=== PATIENT | female | born 1950 | race Hispanic/Latino ===

== ENCOUNTER 2017-09-02 16:35 | Observation (INO) | payer MEDICARE, OTHER ==
[~2017-09-02] VITALS: Ht 152.4 cm; Wt 70.2 kg
[~2017-09-02 16:35] MED LIST: AUGMENTIN500TAB PO; B6 NATURAL100 MG PO; DICLOFENAC50 MG PO; GABAPENTIN300 MG PO; GLIMEPIRIDE4 MG PO; GLUCOPHAGE1000 MG PO; GLUCOVANCE5 MG/500 M PO; IBUPROFEN600 MG OR; JANUVIA100 MG PO; LEVAQUIN500 MG PO; LEVOTHROID50 MCG PO; LIPITOR40 MG OR; LIPITOR40 MG PO; LISINOPRIL5 MG PO; LYRICA75 MG PO; MAGNESIUM400 M1 PO; PRAVASTATIN40 MG PO; PRILOSEC20 MG/CAP PO; SERTRALINE50 MG PO; TESSALON PER100 MG PO; TRAMADOL HCL50 MG PO; TRUETEST STRIPS EX; TRUETEST STRIPS XX; VICODIN ES1 TAB OR; [UNRECOGNIZED DRUG - OTHER] PO
[2017-09-02 17:26] LABS: HEMATOCRIT 37.9 % (37.0-47.0); HEMOGLOBIN 12.9 g/dl (12.0-16.0); IMMATURE GRANULOCYTES 0.3 % (0.0-1.0); MEAN CELL VOLUME 97.9 fL CALC (80.0-100.0); MEAN CORPUSCULAR HGB 33.3 pG CALC (26.0-32.0); NEUT# 4.34 thou/uL (2.00-7.15); RED BLOOD COUNT 3.87 mill/uL (4.20-5.60); RED CELL DISTRI WIDTH 12.5 % (11.5-15.5)
[2017-09-02 18:14] LABS: ALBUMIN 4.2 g/dL (3.2-5.0); BILIRUBIN, TOTAL 0.2 mg/dL (0.0-1.4); BUN 16 mg/dL (8-23); BUN/CREATININE RATIO 26 (12-20 (CALC)); CARBON DIOXIDE 24 mmol/l (22-30); CHLORIDE 106 mmol/l (95-108); CREATININE 0.6 mg/dL (0.5-1.0); GFR > 60 ML/MIN (>=60 (CALC)); GFR FOR AFR.AMER. > 60 ML/MIN (>=60 (CALC)); SGOT/AST 35 u/l (9-36); SGPT/ALT 45 u/l (11-66); TOTAL PROTEIN 7.5 g/dL (6.3-8.2)
[2017-09-02 18:19] LABS: ALKALINE PHOSPHATASE 82 u/l (38-126); ANION GAP 17 (6-22 (CALC)); SODIUM 143 mmol/l (137-146)
[2017-09-02 18:22] LABS: MYOGLOBIN 30 ng/mL (0 - 62)
[2017-09-02] MEDS ORDERED: METFORMIN HCL1000 MG PO (19:14)
[2017-09-02] MEDS ORDERED: ALBUTEROL SUL0.083 % IN (19:16)
[2017-09-02] MEDS ORDERED: FOLIC ACID1 MG PO (19:18)
[2017-09-02] MEDS ORDERED: PRILOSEC20 MG/CAP PO (19:20)
[2017-09-02] MEDS ORDERED: CARAFATE PO (19:21)
[2017-09-02] MEDS ORDERED: SYSTANE BALANCE 0.6% (19:22)
[2017-09-02] MEDS ORDERED: TRAMADOL HCL50 MG PO (19:23)
[2017-09-02] MEDS ORDERED: VITAMIN B-625 MG PO (19:24)
[2017-09-02 20:28] LABS: URINE BILIRUBIN - DIPSTICK NEGATIVE (NEGATIVE); URINE BLOOD DIPSTICK NEGATIVE (NEGATIVE); URINE COLOR YELLOW; URINE GLUCOSE - DIPSTICK NEGATIVE (NEGATIVE); URINE KETONE NEGATIVE (NEGATIVE); URINE LEUK ESTERASE NEGATIVE (NEGATIVE); URINE NITRITE - DIPSTICK NEGATIVE (Negative); URINE PH 5.5 (4.5-8.0); URINE PROTEIN - DIPSTICK NEGATIVE (NEG-TRACE); URINE SPECIFIC GRAVITY 1.015; URINE UROBILINOGEN - DIPSTICK 0.2 E.U./dL (0.2)
[2017-09-02 20:30] LABS: URINE CLARITY CLEAR
[2017-09-02 20:35] VITALS: BP 120/59
[2017-09-03 05:21] VITALS: BP 104/60
[2017-09-03 06:38] LABS: CHOLESTEROL HDL RATIO 3.9 (<4.4 (CALC))
[2017-09-03 08:00] VITALS: BP 117/53
[2017-09-03] MEDS ORDERED: FISH OIL1000 M2 PO (09:58)
[2017-09-03] MEDS ORDERED: AZULFIDINE500 M1 PO (10:11)
[2017-09-03 11:36] VITALS: BP 115/67
[2017-09-03] MEDS ORDERED: ASPIRIN ADULT L81 M2 PO (13:42)
== END 2017-09-03 14:25 | disposition home or self-care (01) ==
LOC: ED 16:35 → ED-I 18:19 → ED 18:31 → MS2 18:32
PROVIDERS: Emergency Medicine; Internal Medicine; ADMIT Internal Medicine; ATTEND Internal Medicine
DX: R07.89 Other chest pain (principal); E11.9 Type 2 diabetes mellitus without complications; I10 Essential (primary) hypertension; E03.9 Hypothyroidism, unspecified; E78.5 Hyperlipidemia, unspecified; G43.909 Migraine, unspecified, not intractable, without status migrainosus; R55 Syncope and collapse; Z87.891 Personal history of nicotine dependence; Z87.442 Personal history of urinary calculi; Z79.84 Long term (current) use of oral hypoglycemic drugs
CPT/HCPCS: Q9967

== ENCOUNTER 2018-03-25 18:07 | Emergency (ER) | payer MEDICARE, OTHER ==
[~2018-03-25] VITALS: Ht 152.4 cm; Wt 72.7 kg
[~2018-03-25 18:07] MED LIST changes: +ALBUTEROL SUL0.083 % IN; +ASPIRIN ADULT L81 M2 PO; +AZULFIDINE500 M1 PO; +CARAFATE PO; +FISH OIL1000 M2 PO; +FOLIC ACID1 MG PO; +METFORMIN HCL1000 MG PO; +SYSTANE BALANCE 0.6%; +VITAMIN B-625 MG PO
[2018-03-25 18:57] LABS: URINE BILIRUBIN - DIPSTICK NEGATIVE (NEGATIVE); URINE BLOOD DIPSTICK NEGATIVE (NEGATIVE); URINE COLOR YELLOW; URINE GLUCOSE - DIPSTICK NEGATIVE (NEGATIVE); URINE KETONE TRACE mg/dL (NEGATIVE); URINE NITRITE - DIPSTICK NEGATIVE (Negative); URINE PROTEIN - DIPSTICK NEGATIVE (NEG-TRACE); URINE SPECIFIC GRAVITY >=1.030; URINE UROBILINOGEN - DIPSTICK 0.2 E.U./dL (0.2)
[2018-03-25 19:02] LABS: URINE CLARITY CLEAR; URINE LEUK ESTERASE SMALL (NEGATIVE)
[2018-03-25 19:03] LABS: HEMATOCRIT 37.7 % (37.0-47.0); HEMOGLOBIN 12.7 g/dl (12.0-16.0); IMMATURE GRANULOCYTES 0.4 % (0.0-5.0); MEAN CELL VOLUME 97.4 fL CALC (80.0-100.0); MEAN CORPUSCULAR HGB 32.8 pG CALC (26.0-32.0); MEAN CORPUSCULAR HGB CONC 33.7 g/L CALC (32.0-36.0); NEUT# 5.54 thou/uL (2.00-7.15); RED BLOOD COUNT 3.87 mill/uL (4.20-5.60); RED CELL DISTRI WIDTH 12.8 % (11.5-15.5)
[2018-03-25 19:03] LABS: URINE SQUAMOUS EPITHELIAL CELL FEW EPI/hpf (0-FEW)
[2018-03-25 19:19] LABS: ALBUMIN 4.4 g/dL (3.2-5.0); ALKALINE PHOSPHATASE 60 u/l (38-126); ANION GAP 16 (6-22 (CALC)); BILIRUBIN, TOTAL 0.4 mg/dL (0.0-1.4); BUN 17 mg/dL (8-23); BUN/CREATININE RATIO 25 (12-20 (CALC)); CARBON DIOXIDE 28 mmol/l (22-30); CHLORIDE 104 mmol/l (95-108); CREATININE 0.7 mg/dL (0.5-1.0); GFR > 60 ML/MIN (>=60 (CALC)); GFR FOR AFR.AMER. > 60 ML/MIN (>=60 (CALC)); POTASSIUM 3.9 mmol/l (3.5-5.1); SGPT/ALT 74 u/l (11-66); SODIUM 144 mmol/l (137-146); TOTAL PROTEIN 8.1 g/dL (6.3-8.2)
[2018-03-25 19:26] LABS: LIPASE 4459 u/l (23-300); SGOT/AST 70 u/l (9-36)
[2018-03-25 23:15] VITALS: BP 107/59
== END 2018-03-25 23:15 ==
LOC: ED 18:07
PROVIDERS: Emergency Medicine
DX: K85.90 Acute pancreatitis without necrosis or infection, unspecified (principal); K29.80 Duodenitis without bleeding; N39.0 Urinary tract infection, site not specified; E11.9 Type 2 diabetes mellitus without complications; E03.9 Hypothyroidism, unspecified; E78.5 Hyperlipidemia, unspecified; Z87.442 Personal history of urinary calculi
CPT/HCPCS: Q9967; S0164

== ENCOUNTER 2018-05-20 15:22 | Emergency (ER) | payer MEDICARE, MEDICAID ==
[~2018-05-20] VITALS: Ht 142.2 cm; Wt 68.2 kg
[2018-05-20 16:29] LABS: HEMATOCRIT 39.3 % (37.0-47.0); HEMOGLOBIN 13.1 g/dl (12.0-16.0); IMMATURE GRANULOCYTES 0.3 % (0.0-5.0); MEAN CELL VOLUME 98.7 fL CALC (80.0-100.0); MEAN CORPUSCULAR HGB 32.9 pG CALC (26.0-32.0); MEAN CORPUSCULAR HGB CONC 33.3 g/L CALC (32.0-36.0); NEUT# 6.29 thou/uL (2.00-7.15); RED BLOOD COUNT 3.98 mill/uL (4.20-5.60); RED CELL DISTRI WIDTH 13.2 % (11.5-15.5)
[2018-05-20 16:47] LABS: ALBUMIN 4.7 g/dL (3.2-5.0); ALKALINE PHOSPHATASE 70 u/l (38-126); BILIRUBIN, TOTAL 0.5 mg/dL (0.0-1.4); BUN 24 mg/dL (8-23); BUN/CREATININE RATIO 36 (12-20 (CALC)); CHLORIDE 109 mmol/l (95-108); CREATININE 0.7 mg/dL (0.5-1.0); GFR > 60 ML/MIN (>=60 (CALC)); GFR FOR AFR.AMER. > 60 ML/MIN (>=60 (CALC)); SGOT/AST 59 u/l (9-36); SODIUM 143 mmol/l (137-146); TOTAL PROTEIN 8.2 g/dL (6.3-8.2)
[2018-05-20 16:48] LABS: ANION GAP 20 (6-22 (CALC)); CARBON DIOXIDE 19 mmol/l (22-30); POTASSIUM 5.3 mmol/l (3.5-5.1)
[2018-05-20 17:38] VITALS: BP 113/57
[2018-05-20 17:43] LABS: URINE BILIRUBIN - DIPSTICK NEGATIVE (NEGATIVE); URINE BLOOD DIPSTICK NEGATIVE (NEGATIVE); URINE COLOR YELLOW; URINE GLUCOSE - DIPSTICK NEGATIVE (NEGATIVE); URINE KETONE NEGATIVE (NEGATIVE); URINE NITRITE - DIPSTICK NEGATIVE (Negative); URINE PH 5.5 (4.5-8.0); URINE PROTEIN - DIPSTICK NEGATIVE (NEG-TRACE); URINE SPECIFIC GRAVITY >=1.030; URINE UROBILINOGEN - DIPSTICK 0.2 E.U./dL (0.2)
[2018-05-20 17:44] LABS: URINE CLARITY CLEAR; URINE LEUK ESTERASE SMALL (NEGATIVE)
[2018-05-20 17:56] LABS: URINE RBC 0-2 RBC/hpf (0-5); URINE SQUAMOUS EPITHELIAL CELL FEW EPI/hpf (0-FEW)
== END 2018-05-20 17:45 | disposition home or self-care (01) ==
LOC: ED 15:22
PROVIDERS: Emergency Medicine
DX: E11.649 Type 2 diabetes mellitus with hypoglycemia without coma (principal); Z79.84 Long term (current) use of oral hypoglycemic drugs; R42 Dizziness and giddiness; R61 Generalized hyperhidrosis

== ENCOUNTER 2018-08-28 11:23 | Outpatient (REF) | payer MEDICARE ==
[2018-08-28 13:26] VITALS: BP 112/67
== END 2018-08-28 15:05 | disposition home or self-care (01) ==
LOC: INF 11:23
PROVIDERS: ATTEND Internal Medicine Rheumatology
DX: M06.09 Rheumatoid arthritis without rheumatoid factor, multiple sites (principal)

== ENCOUNTER 2018-12-16 22:40 | Emergency (ER) | payer MEDICARE ==
[~2018-12-16] VITALS: Ht 142.2 cm; Wt 72.0 kg
[2018-12-16 23:23] LABS: HEMOGLOBIN 12.4 g/dl (12.0-16.0); IMMATURE GRANULOCYTES 0.7 % (0.0-5.0); MEAN CELL VOLUME 94.8 fL CALC (80.0-100.0); MEAN CORPUSCULAR HGB 30.9 pG CALC (26.0-32.0); MEAN CORPUSCULAR HGB CONC 32.6 g/L CALC (32.0-36.0); NEUT# 3.81 thou/uL (2.00-7.15); RED BLOOD COUNT 4.01 mill/uL (4.20-5.60); RED CELL DISTRI WIDTH 13.5 % (11.5-15.5)
[2018-12-16 23:24] LABS: URINE BILIRUBIN - DIPSTICK NEGATIVE (NEGATIVE); URINE BLOOD DIPSTICK NEGATIVE (NEGATIVE); URINE COLOR YELLOW; URINE GLUCOSE - DIPSTICK >=1000 mg/dL (NEGATIVE); URINE KETONE NEGATIVE (NEGATIVE); URINE LEUK ESTERASE NEGATIVE (NEGATIVE); URINE NITRITE - DIPSTICK NEGATIVE (Negative); URINE PROTEIN - DIPSTICK NEGATIVE (NEG-TRACE); URINE SPECIFIC GRAVITY <=1.005; URINE UROBILINOGEN - DIPSTICK 0.2 E.U./dL (0.2)
[2018-12-16 23:39] LABS: ALBUMIN 4.7 g/dL (3.2-5.0); BILIRUBIN, TOTAL 0.4 mg/dL (0.0-1.4); BUN 19 mg/dL (8-23); BUN/CREATININE RATIO 34 (12-20 (CALC)); CHLORIDE 101 mmol/l (95-108); CREATININE 0.6 mg/dL (0.5-1.0); GFR > 60 ML/MIN (>=60 (CALC)); GFR FOR AFR.AMER. > 60 ML/MIN (>=60 (CALC)); POTASSIUM 4.8 mmol/l (3.5-5.1); SGOT/AST 36 u/l (9-36); SODIUM 140 mmol/l (137-146); TOTAL PROTEIN 8.2 g/dL (6.3-8.2)
[2018-12-16 23:52] LABS: MYOGLOBIN 30 ng/mL (0 - 62)
[2018-12-17 00:05] LABS: ALKALINE PHOSPHATASE 99 u/l (38-126); ANION GAP 21 (6-22 (CALC)); CARBON DIOXIDE 23 mmol/l (22-30)
[2018-12-17 01:52] VITALS: BP 159/71
== END 2018-12-17 02:04 | disposition home or self-care (01) ==
LOC: ED 22:40
PROVIDERS: Emergency Medicine
DX: E11.65 Type 2 diabetes mellitus with hyperglycemia (principal); E03.9 Hypothyroidism, unspecified; I10 Essential (primary) hypertension; I25.10 Atherosclerotic heart disease of native coronary artery without angina pectoris

== ENCOUNTER 2019-04-18 10:28 | Observation (INO) | payer MEDICARE ==
[~2019-04-18] VITALS: Ht 152.4 cm; Wt 66.4 kg
--- NOTE | 2019-04-18 10:28 | NUR ---
PT TO ROOM VIA WC WITH EYES CLOSED
--- NOTE | 2019-04-18 10:30 | NUR ---
PT PRESENTS WITH DIZZYNESS AND NAUSEA. PT STATES SYMPTOMS OCCURED AT 0300 TODAY. PT WEAK WHEN AMBULATING AND CONSTANTLY HAS EYES CLOSED TO AVOID INCREASED DIZZYNESS. LUNGS CLEAR BILATERALLY AND ABDOMEN TENDER IN EPIGASTRIC AREA.
--- NOTE | 2019-04-18 10:50 | NUR ---
ACCUCHECK COMPLETED. RESULTS: 256
--- NOTE | 2019-04-18 10:50 | NUR ---
FALL PRECAUTIONS INITIATED.
[2019-04-18 11:03] LABS: HEMATOCRIT 38.9 % (37.0-47.0); HEMOGLOBIN 12.9 g/dl (12.0-16.0); IMMATURE GRANULOCYTES 0.3 % (0.0-5.0); MEAN CORPUSCULAR HGB 31.9 pG CALC (26.0-32.0); MEAN CORPUSCULAR HGB CONC 33.2 g/L CALC (32.0-36.0); NEUT# 4.74 thou/uL (2.00-7.15); RED BLOOD COUNT 4.05 mill/uL (4.20-5.60); RED CELL DISTRI WIDTH 13.9 % (11.5-15.5)
[2019-04-18] MEDS ORDERED: RANITIDINE150 MG PO (11:12)
[2019-04-18] MEDS ORDERED: POTASSIUM CHLO10 MEQ PO (11:13)
[2019-04-18] MEDS ORDERED: GLIMEPIRIDE4 MG PO (11:13)
[2019-04-18] MEDS ORDERED: LISINOPRIL5 MG PO (11:13)
[2019-04-18] MEDS ORDERED: METHOTREXATE2.5 M2 PO (11:14)
[2019-04-18] MEDS ORDERED: ARAVA20 MG PO (11:14)
[2019-04-18] MEDS ORDERED: VITAMIN B6100 MG PO (11:15)
[2019-04-18] MEDS ORDERED: LYRICA75 MG PO (11:15)
[2019-04-18] MEDS ORDERED: MAG OXIDE400 MG PO (11:16)
[2019-04-18] MEDS ORDERED: HYDROXYCHLOR200 M1 PO (11:16)
[2019-04-18] MEDS ORDERED: LEVOTHYROXIN50 MCG PO (11:16)
[2019-04-18] MEDS ORDERED: FOLIC ACID400 MC1 PO (11:17)
[2019-04-18] MEDS ORDERED: CARAFATE1 GM PO (11:17)
[2019-04-18] MEDS ORDERED: DEXILANT60 MG PO (11:18)
[2019-04-18] MEDS ORDERED: METFORMIN1000 MG PO (11:18)
[2019-04-18] MEDS ORDERED: OMEPRAZOLE DR40 MG PO (11:19)
[2019-04-18] MEDS ORDERED: VITAMIN E400 UNIT PO (11:20)
[2019-04-18 11:30] LABS: PROTHROMBIN TIME 10.4 SECONDS (9.0-12.5)
[2019-04-18 11:33] LABS: ALBUMIN 4.4 g/dL (3.2-5.0); ALKALINE PHOSPHATASE 74 u/l (38-126); ANION GAP 16 (6-22 (CALC)); BILIRUBIN, TOTAL 0.5 mg/dL (0.0-1.4); BUN 21 mg/dL (8-23); BUN/CREATININE RATIO 33 (12-20 (CALC)); CARBON DIOXIDE 25 mmol/l (22-30); CHLORIDE 103 mmol/l (95-108); CREATININE 0.6 mg/dL (0.5-1.0); ETHYL ALCOHOL 0 mg/dl (0-30); GFR > 60 ML/MIN (>=60 (CALC)); GFR FOR AFR.AMER. > 60 ML/MIN (>=60 (CALC)); LIPASE 238 u/l (23-300); MAGNESIUM 1.1 mg/dL (1.6-2.3); POTASSIUM 4.4 mmol/l (3.5-5.1); SGOT/AST 33 u/l (9-36); SODIUM 140 mmol/l (137-146)
--- NOTE | 2019-04-18 11:35 | NUR ---
PT AOX4 RESTING ON STRETCHER. FAMILY AT BEDSIDE. PT ADVISED OF WAIT AND CALL LIGHT WITHIN REACH. WILL CONTINUE TO MONIOR.
--- NOTE | 2019-04-18 12:31 | NUR ---
PT ASLEEP ON STRETCHER WITH FAMILY AT BEDSIDE. FAMILY ADVISED OF WAIT AND DENIES ANY NEEDS AT THIS TIME. WILL CONTINUE TO MONITOR.
--- NOTE | 2019-04-18 13:20 | NUR ---
PT RETURNED FROM RADIOLOGY. PT TALKING WITH FAMILY AT BEDSIDE. WILL CONTINUE TO MONITOR.
--- NOTE | 2019-04-18 13:45 | NUR ---
ASSISTED PT TO RESTROOM FOR URINE COLLECTION, AND EDUCATION ON PROPER WIPING FOR PROPER URINE COLLECTION. PT VERBALIZING UNDERSTANDING.
[2019-04-18 14:14] LABS: URINE BILIRUBIN - DIPSTICK NEGATIVE (NEGATIVE); URINE BLOOD DIPSTICK NEGATIVE (NEGATIVE); URINE COLOR YELLOW; URINE GLUCOSE - DIPSTICK NEGATIVE (NEGATIVE); URINE KETONE NEGATIVE (NEGATIVE); URINE LEUK ESTERASE NEGATIVE (NEGATIVE); URINE NITRITE - DIPSTICK NEGATIVE (Negative); URINE PROTEIN - DIPSTICK NEGATIVE (NEG-TRACE); URINE UROBILINOGEN - DIPSTICK 0.2 E.U./dL (0.2)
[2019-04-18 14:16] LABS: COCAINE NEGATIVE (NEGATIVE); TETRAHYDROCANNABIONOL POSITIVE (NEGATIVE)
[2019-04-18 14:17] LABS: BARBITURATES NEGATIVE (NEGATIVE); METHADONE NEGATIVE (NEGATIVE); OXCYCODONE NEGATIVE (NEGATIVE); TRICYLIC ANTIDEPRESSANTS NEGATIVE (NEGATIVE)
--- NOTE | 2019-04-18 14:40 | NUR ---
PT RESTING ON STRETCHER SOCIALIZING WITH FAMILY.
--- NOTE | 2019-04-18 15:18 | NUR ---
REPORT JASMEET TO NISA IN [facility]. NISA REQUESTED A COPY FOR PT OF BLOOD TRANSFUSION CONSENT. PT WILL BE IN ROOM 278, TELE [phone]
--- NOTE | 2019-04-18 16:05 | NUR ---
REPORT JASMEET PHILIP. ROOM 283 TELE [phone].
--- NOTE | 2019-04-18 16:15 | NUR ---
TRANSFERED PT BY [facility] TO [facility]. CARE ASSUMED TO CEDRICK.
[2019-04-18 16:23] VITALS: BP 128/72
--- NOTE | 2019-04-18 16:28 | NUR ---
REPORT RECEIVED FROM MAI IN ED, PT ARRIVED ON UNIT VIA STRETCHER @ 1616, AMBULATED TO SCALE WITH SUPERVISION THEN TO BED, ALERT AND ORIENTED X 3, C/O MILD HEADACHE AT THIS TIME, SETTLED IN BED, ORIENTED TO ROOM AND CALL ALEMAN, FAMILY AT BEDSIDE.
[2019-04-18 19:25] VITALS: BP 135/70
--- NOTE | 2019-04-18 20:00 | NUR ---
PATIENT RESTING IN BED WITH FAMILY MEMBERS AT BEDSIDE. LAB HERE TO DRAW MAG LEVEL ORDERED. PATIENT IS BHUTANESE SPEAKING ONLY. GEORGE FROM LAB IS ABLE TO TRANSLATE FOR ASSESSMENT. PATIENT IS AWAKE ALERT AND ORIENTEDX3. PATIENT DOES C/O OF SOME DIZZINESS-STATES THAT THIS HAPPENS WHENEVER HER MAG IS LOW-STATES THAT THIS HAS HAPPENED TO HER IN THE PASTX3. STATES THAT HEADACHE HAS IMPROVED. TELE MONITOR IN PLACE. SALINE LOCK TO LEFT FOREARM INTACT AND APPEARS HEALTHY AT THIS ITME. STATES THAT SHE HAD BM TODAY AND DENIES ANY DIFFICULTY WITH URINATION. LUNGS ARE CLEAR. ABD IS SOFT WITH BS+. SAFETY PRECAUTIONS REINFORCED. CALL LIGHT IN REACH. WILL CONT TO MONITOR.
--- NOTE | 2019-04-18 23:52 | NUR ---
PATIENT RESTING IN BED AT THIS TIME-APPEARS SLEEPING WITH FAMILY MEMBER AT BEDSIDE. RESP ARE EVEN AND UNLABORED. TELE MONITOR IN PLACE. CALL LIGHT IN REACH. WILL CONT TO MONITOR.
[2019-04-19] VITALS (9 sets, daily range): BP systolic 112–135; BP diastolic 62–84
--- NOTE | 2019-04-19 04:14 | NUR ---
APPEARS SLEEPING AT THIS TIME WITH FAMILY MEMBER RESTING AT BEDSIDE. RESP EVEN AND UNLABORED. TELE MONITOR IN PLACE. SALINE LOCK TO LEFT FOREARM. CALL LIGHT IN REACH. WILL CONT TO MONITOR.
[2019-04-19 06:26] LABS: HEMATOCRIT 35.8 % (37.0-47.0); HEMOGLOBIN 11.9 g/dl (12.0-16.0); IMMATURE GRANULOCYTES 0.2 % (0.0-5.0); MEAN CELL VOLUME 95.7 fL CALC (80.0-100.0); MEAN CORPUSCULAR HGB 31.8 pG CALC (26.0-32.0); MEAN CORPUSCULAR HGB CONC 33.2 g/L CALC (32.0-36.0); NEUT# 3.12 thou/uL (2.00-7.15); RED BLOOD COUNT 3.74 mill/uL (4.20-5.60); RED CELL DISTRI WIDTH 13.9 % (11.5-15.5)
[2019-04-19 06:38] LABS: ANION GAP 10 (6-22 (CALC)); BUN 15 mg/dL (8-23); BUN/CREATININE RATIO 23 (12-20 (CALC)); CARBON DIOXIDE 26 mmol/l (22-30); CHLORIDE 106 mmol/l (95-108); CREATININE 0.7 mg/dL (0.5-1.0); GFR > 60 ML/MIN (>=60 (CALC)); GFR FOR AFR.AMER. > 60 ML/MIN (>=60 (CALC)); MAGNESIUM 1.5 mg/dL (1.6-2.3); SODIUM 139 mmol/l (137-146)
--- NOTE | 2019-04-19 08:05 | NUR ---
REPORT WAS RECEIVED FROM MYA. PT IS SITTING IN THE RECLINER. ASSESSMENT DONE. PT IS A&O X3. PT DENIES PAIN AT THIS TIME. RESPS EVEN AND UNLABORED. PT STATED SHE DID FEEL LITTLE DIZZY. PT STATED THAT LATER SHE WANTS TO TAKE A SHOWER. PT DENIES ANY OTHER NEEDS. SAFETY PRECAUTION REINFORCED AND CALL LIGHT IN REACH.
[2019-04-19 08:49] LABS: CHOLESTEROL HDL RATIO 5.3 (<4.4 (CALC))
--- NOTE | 2019-04-19 11:28 | NUR ---
PT IS RESTING IN BED ON HER RIGHT SIDE WITH NO S/S OF DISTRESS NOTED. PT DENIES PAIN OR NEEDS AT THIS TIME. DAUGHTER IN ROOM. CALL LIGHT IN REACH.
[2019-04-19] MEDS ORDERED: LIPITOR20 M1 PO (15:59)
[2019-04-19] MEDS ORDERED: MAGNESIUM 400 M1 TAB PO (15:59)
--- NOTE | 2019-04-19 16:49 | NUR ---
Discharge instructions given. Patient verbalizes understanding of same. Discharged in stable condition via Wheelchair to Home with family. All belongings sent with pt.
== END 2019-04-19 16:49 | disposition home or self-care (01) ==
LOC: ED 10:28 → ED-I 14:27 → ED 14:49 → MS2 14:50
PROVIDERS: Nurse Practitioner Family; ADMIT Internal Medicine; ATTEND Internal Medicine
DX: R07.9 Chest pain, unspecified (principal); E83.42 Hypomagnesemia; I10 Essential (primary) hypertension; E11.40 Type 2 diabetes mellitus with diabetic neuropathy, unspecified; K21.9 Gastro-esophageal reflux disease without esophagitis; K52.9 Noninfective gastroenteritis and colitis, unspecified; I25.10 Atherosclerotic heart disease of native coronary artery without angina pectoris; E03.9 Hypothyroidism, unspecified; E78.5 Hyperlipidemia, unspecified; G43.909 Migraine, unspecified, not intractable, without status migrainosus; Z79.84 Long term (current) use of oral hypoglycemic drugs; Z87.891 Personal history of nicotine dependence
CPT/HCPCS: J3475; Q9967

== ENCOUNTER 2019-12-13 12:52 | Emergency (ER) | payer MEDICARE ==
[~2019-12-13 12:52] MED LIST changes: +ARAVA20 MG PO; +CARAFATE1 GM PO; +DEXILANT60 MG PO; +FOLIC ACID400 MC1 PO; +HYDROXYCHLOR200 M1 PO; +LEVOTHYROXIN50 MCG PO; +LIPITOR20 M1 PO; +MAG OXIDE400 MG PO; +MAGNESIUM 400 M1 TAB PO; +METFORMIN1000 MG PO; +METHOTREXATE2.5 M2 PO; +OMEPRAZOLE DR40 MG PO; +POTASSIUM CHLO10 MEQ PO; +RANITIDINE150 MG PO; +VITAMIN B6100 MG PO; +VITAMIN E400 UNIT PO
[2019-12-13 15:05] VITALS: BP 143/81
== END 2019-12-13 15:05 | disposition home or self-care (01) ==
LOC: ED 12:52
DX: S50.01XA Contusion of right elbow, initial encounter (principal); E11.9 Type 2 diabetes mellitus without complications; I25.10 Atherosclerotic heart disease of native coronary artery without angina pectoris; W11.XXXA Fall on and from ladder, initial encounter; Y92.009 Unspecified place in unspecified non-institutional (private) residence as the place of occurrence of the external cause; Z79.84 Long term (current) use of oral hypoglycemic drugs

== ENCOUNTER 2020-01-08 12:12 | Observation (INO) | payer MEDICARE ==
[~2020-01-08] VITALS: Ht 152.4 cm; Wt 80.0 kg
--- NOTE | 2020-01-08 12:23 | NUR ---
PT TO ROOM VIA WC IN NO DISTRESS
--- NOTE | 2020-01-08 13:23 | NUR ---
PT MEDICATED PER MAR FOR LOWER ABD PAIN
[2020-01-08 13:29] LABS: HEMATOCRIT 39.5 % (37.0-47.0); HEMOGLOBIN 12.8 g/dl (12.0-16.0); IMMATURE GRANULOCYTES 0.3 % (0.0-5.0); MEAN CELL VOLUME 97.8 fL CALC (80.0-100.0); MEAN CORPUSCULAR HGB 31.7 pG CALC (26.0-32.0); MEAN CORPUSCULAR HGB CONC 32.4 g/dL CAL (32.0-36.0); NEUT# 2.47 thou/uL (2.00-7.15); RED BLOOD COUNT 4.04 mill/uL (4.20-5.60)
[2020-01-08 13:41] LABS: ALBUMIN 4.7 g/dL (3.2-5.0); ALKALINE PHOSPHATASE 56 u/l (38-126); BILIRUBIN, TOTAL 0.5 mg/dL (0.0-1.4); BUN 19 mg/dL (8-23); BUN/CREATININE RATIO 30 (12-20 (CALC)); CARBON DIOXIDE 22 mmol/l (22-30); CHLORIDE 104 mmol/l (95-108); CREATININE 0.6 mg/dL (0.5-1.0); GFR > 60 ML/MIN (>=60 (CALC)); GFR FOR AFR.AMER. > 60 ML/MIN (>=60 (CALC)); LIPASE 167 u/l (23-300); SGOT/AST 38 u/l (9-36); SODIUM 136 mmol/l (137-146); TOTAL PROTEIN 8.1 g/dL (6.3-8.2)
[2020-01-08 13:42] LABS: ANION GAP 15 (6-22 (CALC)); POTASSIUM 5.3 mmol/l (3.5-5.1)
--- NOTE | 2020-01-08 14:20 | NUR ---
PT RESTING ON STRETCHER; NO S/S OF DISTRESS NOTED; VSS; PT STATES PAIN HAS IMPROVED AT THIS TIME; DAUGHTER AT BEDSIDE; WILL CONTINUE TO MONITOR
--- NOTE | 2020-01-08 15:20 | NUR ---
PT RESTING ON STRETCHER; NO S/S OF DISTRESS NOTED; VSS; ADVISED OF CONTINUED WAIT TIME; WILL CONTINUE TO MONITOR
[2020-01-08 15:46] LABS: URINE BILIRUBIN - DIPSTICK NEGATIVE (NEGATIVE); URINE BLOOD DIPSTICK NEGATIVE (NEGATIVE); URINE COLOR YELLOW; URINE GLUCOSE - DIPSTICK NEGATIVE (NEGATIVE); URINE KETONE NEGATIVE (NEGATIVE); URINE LEUK ESTERASE NEGATIVE (NEGATIVE); URINE NITRITE - DIPSTICK NEGATIVE (Negative); URINE PROTEIN - DIPSTICK NEGATIVE (NEG-TRACE); URINE SPECIFIC GRAVITY <=1.005; URINE UROBILINOGEN - DIPSTICK 0.2 E.U./dL (0.2)
--- NOTE | 2020-01-08 16:34 | NUR ---
DR OWENS AT BEDSIDE TO DISCUSS POC AND FINDINGS
[2020-01-08] MEDS ORDERED: ENBREL50 MG/ML SC (16:42)
[2020-01-08] MEDS ORDERED: OZEMPIC2 MG/1.5 M IN (16:43)
--- NOTE | 2020-01-08 17:30 | NUR ---
PT RESTING ON STRETCHER; NO S/S OF DISTRESS NOTED; VSS; WILL CONTINUE TO MONITOR
--- NOTE | 2020-01-08 18:20 | NUR ---
Admission Note Report Given to: ESTELLE GERBER Transported by: X Wheelchair Stretcher Transported with: X Nurse Transporter X Patent IV O2 X Saw Cleaner Location: ICU X MS2
--- NOTE | 2020-01-08 19:04 | NUR ---
REPORT FROM QI MCCABE. PT NOTED RESTING IN BED. NO APPARENT DISTRESS NOTED. PT NORWEGIAN SPEAKING ONLY. RN ON SHIFT TO TRANSLATE. PT DENIES ANY CURRENT WANTS OR NEEDS AT THIS TIME. CHIEF TECHNICIAN IN PLACE. IV SITE APPEARS HEALTHY. DISCUSSED POC. PT VERBALIZED UNDERSTANDING. CALL LIGHT WITHIN REACH. WILL CONTINUE TO MONITOR.
[2020-01-08 21:21] VITALS: BP 135/75
--- NOTE | 2020-01-08 21:37 | NUR ---
PT MEDICATED ORDERED. APAP AND SLEEPING PILL PROVIDED UPON REQUEST. NO OTHER WANTS OR NEEDS. CALL LIGHT WITHIN REACH. WILL CONTINUE TO MONITOR.
[2020-01-09 00:18] VITALS: BP 102/56
[2020-01-09 03:12] VITALS: BP 102/69
--- NOTE | 2020-01-09 03:38 | NUR ---
PT RESTING IN BED. SLEEPING AT THIS TIME. NO APPARENT DISTRESS NOTED. CLINICAL PRACTICE CONSULTANT IN PLACE. IV FLUIDS INFUSING WITHOUT DIFFICULTY. CALL LIGHT WITHIN REACH. WILL CONTINUE TO MONITOR.
[2020-01-09 05:57] LABS: MAGNESIUM 1.4 mg/dL (1.6-2.3)
[2020-01-09 07:04] VITALS: BP 111/68
--- NOTE | 2020-01-09 07:04 | NUR ---
PT SLEEPING IN BED, AWAKENED TO COMPLETE ASSESSMENT. A&O X3. REPORTS TO BE FEELING BETTER THIS MORNING, NO PAIN AT THIS TIME. ASSESSMENT COMPLETED. DISCUSSED POC. CALL LIGHT IN REACH. CONTINUE TO MONITOR.
[2020-01-09] MEDS ORDERED: MAGNESIUM 400 M1 TAB PO (11:00)
[2020-01-09 11:23] VITALS: BP 119/75
--- NOTE | 2020-01-09 12:20 | NUR ---
D/C INSTRUCTIONS GIVEN TO PT. PT VERBALIZED UNDERSTANDING. IV INTACT UPON REMOVAL.
--- NOTE | 2020-01-09 12:35 | NUR ---
Discharge instructions given. Patient verbalizes understanding of same. Discharged in stable condition via wheelchair to home accompanied by staff and daughter. All belongings sent with pt.
== END 2020-01-09 12:35 | disposition home or self-care (01) ==
LOC: ED 12:12 → ED-I 16:20 → ED 16:44 → ED-I 16:45 → MS2 17:49
PROVIDERS: Family Medicine; ADMIT Internal Medicine; ATTEND Internal Medicine
DX: E83.42 Hypomagnesemia (principal); K21.9 Gastro-esophageal reflux disease without esophagitis; E11.9 Type 2 diabetes mellitus without complications; I10 Essential (primary) hypertension; I25.10 Atherosclerotic heart disease of native coronary artery without angina pectoris; E78.5 Hyperlipidemia, unspecified; Z87.891 Personal history of nicotine dependence; Z79.84 Long term (current) use of oral hypoglycemic drugs; Z79.899 Other long term (current) drug therapy; Z20.828 Contact with and (suspected) exposure to other viral communicable diseases
CPT/HCPCS: G0378; J3475; Q9967

== ENCOUNTER 2020-04-24 13:17 | Emergency (ER) | payer MEDICARE, MEDICAID ==
[~2020-04-24] VITALS: Ht 152.4 cm; Wt 68.0 kg
[~2020-04-24 13:17] MED LIST changes: +ENBREL50 MG/ML SC; +OZEMPIC2 MG/1.5 M IN
[2020-04-24 13:41] LABS: URINE BILIRUBIN - DIPSTICK NEGATIVE (NEGATIVE); URINE BLOOD DIPSTICK NEGATIVE (NEGATIVE); URINE COLOR YELLOW; URINE GLUCOSE - DIPSTICK >=1000 mg/dL (NEGATIVE); URINE KETONE NEGATIVE (NEGATIVE); URINE LEUK ESTERASE NEGATIVE (NEGATIVE); URINE NITRITE - DIPSTICK NEGATIVE (Negative); URINE PROTEIN - DIPSTICK NEGATIVE (NEG-TRACE); URINE SPECIFIC GRAVITY <=1.005; URINE UROBILINOGEN - DIPSTICK 0.2 E.U./dL (0.2)
[2020-04-24] MEDS ORDERED: TAM75CAP PO (14:09)
[2020-04-24 14:18] VITALS: BP 117/64
== END 2020-04-24 14:37 | disposition home or self-care (01) ==
LOC: ED 13:17
DX: J10.1 Influenza due to other identified influenza virus with other respiratory manifestations (principal); E11.9 Type 2 diabetes mellitus without complications; Z79.84 Long term (current) use of oral hypoglycemic drugs

== ENCOUNTER 2020-07-09 14:56 | Emergency (ER) | payer MEDICARE, MEDICAID ==
[~2020-07-09] VITALS: Ht 152.4 cm; Wt 70.0 kg
[~2020-07-09 14:56] MED LIST changes: +TAM75CAP PO
[2020-07-09 16:55] LABS: HEMATOCRIT 39.5 % (37.0-47.0); HEMOGLOBIN 12.2 g/dl (12.0-16.0); IMMATURE GRANULOCYTES 0.1 % (0.0-5.0); MEAN CELL VOLUME 87.2 fL CALC (80.0-100.0); MEAN CORPUSCULAR HGB 26.9 pG CALC (26.0-32.0); MEAN CORPUSCULAR HGB CONC 30.9 g/dL CAL (32.0-36.0); NEUT# 3.27 thou/uL (2.00-7.15); RED BLOOD COUNT 4.53 mill/uL (4.20-5.60); RED CELL DISTRI WIDTH 17.2 % (11.5-15.5)
[2020-07-09 17:19] LABS: ALBUMIN 4.5 g/dL (3.2-5.0); ALKALINE PHOSPHATASE 74 u/l (38-126); ANION GAP 17 (6-22 (CALC)); BILIRUBIN, TOTAL 0.4 mg/dL (0.0-1.4); BUN 22 mg/dL (8-23); BUN/CREATININE RATIO 29 (12-20 (CALC)); CARBON DIOXIDE 21 mmol/l (22-30); CHLORIDE 107 mmol/l (95-108); CREATININE 0.8 mg/dL (0.5-1.0); GFR > 60 ML/MIN (>=60 (CALC)); GFR FOR AFR.AMER. > 60 ML/MIN (>=60 (CALC)); MAGNESIUM 1.4 mg/dL (1.6-2.3); POTASSIUM 4.8 mmol/l (3.5-5.1); SGOT/AST 44 u/l (9-36); SODIUM 140 mmol/l (137-146); TOTAL PROTEIN 7.8 g/dL (6.3-8.2)
[2020-07-09 17:31] LABS: MYOGLOBIN 57 ng/mL (0 - 62)
[2020-07-09 21:20] LABS: URINE BILIRUBIN - DIPSTICK NEGATIVE (NEGATIVE); URINE BLOOD DIPSTICK NEGATIVE (NEGATIVE); URINE COLOR YELLOW; URINE GLUCOSE - DIPSTICK >=1000 mg/dL (NEGATIVE); URINE KETONE NEGATIVE (NEGATIVE); URINE LEUK ESTERASE NEGATIVE (NEGATIVE); URINE NITRITE - DIPSTICK NEGATIVE (Negative); URINE PH 5.5 (4.5-8.0); URINE PROTEIN - DIPSTICK NEGATIVE (NEG-TRACE); URINE UROBILINOGEN - DIPSTICK 0.2 E.U./dL (0.2)
[2020-07-09 22:24] VITALS: BP 130/54
== END 2020-07-09 22:24 | disposition home or self-care (01) ==
LOC: ED 14:56
PROVIDERS: Emergency Medicine
DX: E83.42 Hypomagnesemia (principal); E11.9 Type 2 diabetes mellitus without complications; Z79.84 Long term (current) use of oral hypoglycemic drugs; Z20.822 Contact with and (suspected) exposure to COVID-19
CPT/HCPCS: J3475

== ENCOUNTER 2020-12-03 20:09 | Observation (INO) | payer MEDICARE, MEDICAID ==
[~2020-12-03] VITALS: Ht 144.8 cm; Wt 66.0 kg
[~2020-12-03 20:09] MED LIST changes: +DECADRON6 MG PO; +LYRICA50 MG PO; +ZPAK PO
--- NOTE | 2020-12-03 20:15 | NUR ---
TO ROOM VIA W/C. TRIAGED AT BEDSIDE.
[2020-12-03] MEDS ORDERED: SERTRALINE50 MG PO (20:50)
[2020-12-03] MEDS ORDERED: PROTONIX40 M2 PO (20:50)
[2020-12-03] MEDS ORDERED: TAMAZAPAM PO (20:53)
[2020-12-03] MEDS ORDERED: AMILORIDE5 MG PO (20:53)
[2020-12-03] MEDS ORDERED: RESTASIS0.05 % OS (20:54)
[2020-12-03] MEDS ORDERED: METAN3 (20:55)
[2020-12-03] MEDS ORDERED: VITAMIN D33000 UNIT PO (20:56)
[2020-12-03 20:58] LABS: HEMATOCRIT 40.6 % (37.0-47.0); HEMOGLOBIN 12.4 g/dl (12.0-16.0); IMMATURE GRANULOCYTES 0.3 % (0.0-5.0); MEAN CORPUSCULAR HGB 25.4 pG CALC (26.0-32.0); MEAN CORPUSCULAR HGB CONC 30.5 g/dL CAL (32.0-36.0); NEUT# 6.53 thou/uL (2.00-7.15); RED BLOOD COUNT 4.89 mill/uL (4.20-5.60); RED CELL DISTRI WIDTH 20.6 % (11.5-15.5)
[2020-12-03 21:13] LABS: URINE BILIRUBIN - DIPSTICK NEGATIVE (NEGATIVE); URINE BLOOD DIPSTICK NEGATIVE (NEGATIVE); URINE COLOR YELLOW; URINE GLUCOSE - DIPSTICK >=1000 mg/dL (NEGATIVE); URINE KETONE NEGATIVE (NEGATIVE); URINE PROTEIN - DIPSTICK NEGATIVE (NEG-TRACE); URINE SPECIFIC GRAVITY 1.015; URINE UROBILINOGEN - DIPSTICK 0.2 E.U./dL (0.2)
[2020-12-03 21:16] LABS: ALBUMIN 4.6 g/dL (3.2-5.0); ALKALINE PHOSPHATASE 95 u/l (38-126); AMYLASE 66 u/l (30-110); ANION GAP 16 (6-22 (CALC)); BILIRUBIN, TOTAL 0.3 mg/dL (0.0-1.4); BUN 23 mg/dL (8-23); BUN/CREATININE RATIO 32 (12-20 (CALC)); CARBON DIOXIDE 19 mmol/l (22-30); CHLORIDE 106 mmol/l (95-108); CREATININE 0.7 mg/dL (0.5-1.0); GFR > 60 ML/MIN (>=60 (CALC)); GFR FOR AFR.AMER. > 60 ML/MIN (>=60 (CALC)); LIPASE 165 u/l (23-300); POTASSIUM 4.9 mmol/l (3.5-5.1); SGOT/AST 70 u/l (9-36); SODIUM 136 mmol/l (137-146); TOTAL PROTEIN 8.9 g/dL (6.3-8.2)
[2020-12-03 21:17] LABS: URINE LEUK ESTERASE SMALL (NEGATIVE); URINE NITRITE - DIPSTICK NEGATIVE (Negative)
[2020-12-03 21:23] LABS: URINE SQUAMOUS EPITHELIAL CELL RARE EPI/hpf (0-FEW)
--- NOTE | 2020-12-03 23:33 | NUR ---
PATIOENT LAYS ON HER L-SIDE, REPORTS ABDOMINAL PAIN IS 5 OUT OF 10 AFTER RECEIVING TORADOL IV. PATIENT AND GRANDDAUGHTER AT BEDSIDE ARE AWARE OF PATIENT TRANSFER TO [facility] FOR CAT SCAN OF ABDOMEN/PELVIS, CONSENT WAS TAKEN. NO COMPLAINTS OR NEEDS AT THIS TIME. CALL LIGHT WITHIN REACH.
--- NOTE | 2020-12-04 00:48 | NUR ---
PATIENT LAYS IN ANGEL'S POSITION, REPORTS PAIN IS LESS NOW, GRANDDAUGHTER AT BEDASIDE. PATIENT HAS NO COMPLAINTS OR NEEDS AT THIS TIME.
--- NOTE | 2020-12-04 02:30 | NUR ---
PATIENT AGREES WITH PLAN FOR TRANSFER TO [facility] FOR CT THEN RETURN TO THIS FACILITY. REPORT GIVEN TO SUSAN WITH [facility].
--- NOTE | 2020-12-04 05:45 | NUR ---
PATIENT HAS RETURNED FROM TRANSPORT WITH [facility]. NO DISTRESS. CT CD AND REPORT RECIEVED
--- NOTE | 2020-12-04 05:54 | NUR ---
PATIENT DENIES PAIN OR DIARRHEA AT THIS TIME
--- NOTE | 2020-12-04 07:00 | NUR ---
PT RESTING IN ROOM.
--- NOTE | 2020-12-04 08:10 | NUR ---
PT RESTING IN ROOM.
--- NOTE | 2020-12-04 08:26 | NUR ---
REPORT TO MS CABRERA IN SBAR FORMAT.
[2020-12-04 08:55] VITALS: BP 117/70
--- NOTE | 2020-12-04 09:37 | NUR ---
REPORT RECEIVED FROM JENNIFER LARSON ARRIVED ON UNIT @ 0850 TRANSPORTED VIA WC AND AMBULATED TO BED, ALERT AND ORIENTED X 3, ORIENTED TO ROOM AND CALL ALEMAN, SETTLED IN BED. IV ABT INFUSING, DAUGHTER AT BEDSIDE, CALL ALEMAN IN REACH, WILL CONTINUE TO MONITOR.
--- NOTE | 2020-12-04 12:00 | NUR ---
MEDICAL TEAM ROUNDED AND DISCUSSED POC WITH PT AND FAMILY, ALL NEEDS MET/ADDRESSED, CALL ALEMAN IN REACH.
[2020-12-04 15:07] VITALS: BP 89/56
--- NOTE | 2020-12-04 16:22 | NUR ---
PT C/O ITCHING TO HEAD STATING IT STARTED AFTER DYE WAS GIVEN FOR CT SCAN, FINISHER [employer] NOTIFIED AND GAVE ORDERS, ORDERS PROCESED AND EXECUTED, WILL CONTINUE TO MONITOR.
[2020-12-04 17:14] VITALS: BP 108/61
[2020-12-04 19:45] VITALS: BP 98/62
--- NOTE | 2020-12-04 21:28 | NUR ---
PHYSICAL ASSESMENT COMPLETE. PT CURRENTLY DENIES PAIN OR DISCOMFORT. PT REQUESTED AND WAS PROVIDED SLEEPING MEDICATION. SCHEDULED MEDICATIONS AND PRN MEDICATION ADMINISTERED, SEE E-MAR. PT DENIES ANY NEEDS AT THIS TIME. PLAN OF CARE REVIEWED, PT DENIES QUESTIONS, VERBALIZES UNDERSTANDING. ITEMS WITHIN REACH, BED LOCKED IN LOW POSITION W/ BEDRAILS UP X2. CALL ALEMAN WITHIN REACH, AGREES TO CALL PRN.
--- NOTE | 2020-12-05 | NUR ---
PT LAYING IN BED WITH EYES CLOSED, APPEARS TO BE SLEEPING, APPEARS COMFORTABLE AND IN NO DISTRESS. RESPIRATIONS REGULAR AND UNLABORED. ITEMS REMAIN WITHIN REACH, CALL ALEMAN REMAINS WITHIN REACH. BED REMAINS LOCKED AND IN LOW POSITION WITH BEDRAILS UP X2. WILL CONTINUE TO MONITOR.
[2020-12-05 04:00] VITALS: BP 96/51
--- NOTE | 2020-12-05 04:22 | NUR ---
PT RESTING IN BED, NO SIGNS OF DISTRESS NOTED, RESP EVEN AND UNLABORED. PT VOICES NO NEEDS OR COMPLAINTS AT THIS TIME. CALL LIGHT IN REACH, CONTINUE TO MONITOR.
[2020-12-05 05:39] LABS: HEMATOCRIT 34.9 % (37.0-47.0); HEMOGLOBIN 10.8 g/dl (12.0-16.0); IMMATURE GRANULOCYTES 0.3 % (0.0-5.0); MEAN CELL VOLUME 82.5 fL CALC (80.0-100.0); MEAN CORPUSCULAR HGB 25.5 pG CALC (26.0-32.0); MEAN CORPUSCULAR HGB CONC 30.9 g/dL CAL (32.0-36.0); NEUT# 4.14 thou/uL (2.00-7.15); RED BLOOD COUNT 4.23 mill/uL (4.20-5.60); RED CELL DISTRI WIDTH 20.6 % (11.5-15.5)
[2020-12-05 05:59] LABS: ALKALINE PHOSPHATASE 60 u/l (38-126); BILIRUBIN, TOTAL 0.2 mg/dL (0.0-1.4); BUN 10 mg/dL (8-23); BUN/CREATININE RATIO 17 (12-20 (CALC)); CHLORIDE 108 mmol/l (95-108); CREATININE 0.6 mg/dL (0.5-1.0); GFR > 60 ML/MIN (>=60 (CALC)); GFR FOR AFR.AMER. > 60 ML/MIN (>=60 (CALC)); POTASSIUM 4.3 mmol/l (3.5-5.1); SGOT/AST 51 u/l (9-36); SODIUM 136 mmol/l (137-146)
[2020-12-05 06:03] LABS: ALBUMIN 3.2 g/dL (3.2-5.0); ANION GAP 9 (6-22 (CALC)); CARBON DIOXIDE 23 mmol/l (22-30); TOTAL PROTEIN 6.3 g/dL (6.3-8.2)
[2020-12-05 07:09] VITALS: BP 104/62
--- NOTE | 2020-12-05 07:37 | NUR ---
SHIFT CHANGE REPORT, PT AWAKE ALERT AND ORIENTED RESTING IN BED, NO C/O DISCOMFORT AT THIS TIME, IVF INFUSING, CALL ALEMAN IN REACH AND BED LOCKED IN LOWEST POSITION.
[2020-12-05] MEDS ORDERED: Levaquin PO (10:55)
--- NOTE | 2020-12-05 12:04 | NUR ---
Discharge instructions given. Patient verbalizes understanding of same. Discharged in good condition via Wheelchair to Home with family. All belongings sent with pt.
== END 2020-12-05 12:00 | disposition home or self-care (01) ==
LOC: ED 20:09 → ED-I 12-04 06:48 → ED 12-04 07:10 → MS2 12-04 07:11
PROVIDERS: Emergency Medicine; ADMIT Internal Medicine; ATTEND Internal Medicine
DX: K57.92 Diverticulitis of intestine, part unspecified, without perforation or abscess without bleeding (principal); J18.9 Pneumonia, unspecified organism; K52.9 Noninfective gastroenteritis and colitis, unspecified; E11.40 Type 2 diabetes mellitus with diabetic neuropathy, unspecified; E86.0 Dehydration; R09.02 Hypoxemia; I25.10 Atherosclerotic heart disease of native coronary artery without angina pectoris; E78.5 Hyperlipidemia, unspecified; E03.9 Hypothyroidism, unspecified; K21.9 Gastro-esophageal reflux disease without esophagitis; Z87.891 Personal history of nicotine dependence; Z87.442 Personal history of urinary calculi; Z79.84 Long term (current) use of oral hypoglycemic drugs; Z20.822 Contact with and (suspected) exposure to COVID-19; R82.71 Bacteriuria
CPT/HCPCS: G0378; Q9967

== ENCOUNTER 2021-01-29 18:45 | Emergency (ER) | payer MEDICARE, MEDICAID ==
[~2021-01-29] VITALS: Ht 144.8 cm; Wt 65.0 kg
[~2021-01-29 18:45] MED LIST changes: +AMILORIDE5 MG PO; +Levaquin PO; +METAN3; +PROTONIX40 M2 PO; +RESTASIS0.05 % OS; +TAMAZAPAM PO; +VITAMIN D33000 UNIT PO
[2021-01-29 20:18] LABS: HEMATOCRIT 36.3 % (37.0-47.0); HEMOGLOBIN 11.2 g/dl (12.0-16.0); IMMATURE GRANULOCYTES 0.1 % (0.0-5.0); MEAN CELL VOLUME 80.5 fL CALC (80.0-100.0); MEAN CORPUSCULAR HGB 24.8 pG CALC (26.0-32.0); MEAN CORPUSCULAR HGB CONC 30.9 g/dL CAL (32.0-36.0); NEUT# 7.33 thou/uL (2.00-7.15); RED BLOOD COUNT 4.51 mill/uL (4.20-5.60); RED CELL DISTRI WIDTH 18.5 % (11.5-15.5)
[2021-01-29 20:43] LABS: ALBUMIN 3.9 g/dL (3.2-5.0); ALKALINE PHOSPHATASE 86 u/l (38-126); ANION GAP 15 (6-22 (CALC)); BILIRUBIN, TOTAL 0.2 mg/dL (0.0-1.4); BUN 25 mg/dL (8-23); BUN/CREATININE RATIO 32 (12-20 (CALC)); CARBON DIOXIDE 23 mmol/l (22-30); CHLORIDE 100 mmol/l (95-108); CREATININE 0.8 mg/dL (0.5-1.0); GFR > 60 ML/MIN (>=60 (CALC)); GFR FOR AFR.AMER. > 60 ML/MIN (>=60 (CALC)); POTASSIUM 5.1 mmol/l (3.5-5.1); SGOT/AST 32 u/l (9-36); SODIUM 133 mmol/l (137-146); TOTAL PROTEIN 7.3 g/dL (6.3-8.2)
[2021-01-29 22:39] VITALS: BP 117/76
[2021-01-29] MEDS ORDERED: MOTRIN400 MG/TAB PO (22:41)
[2021-01-29] MEDS ORDERED: ORPHENADRINE100 MG PO (22:41)
--- NOTE | 2021-01-30 08:14 | NUR ---
RECEIVED PHARMACY CONSULT FOR MED REC AFTER HOURS ON 01/29/21 @ 1931. MED REC COMPLETED BY Susie LEON IN ED. PT DEPARTED HOME PRIOR TO PHARMACY OPENING ON 01/30/21. MED REC COMPLETED BY NURSING STAFF WITH [facility] PRIOR TO DEPARTURE.
== END 2021-01-29 22:39 | disposition home or self-care (01) ==
LOC: ED 18:45
PROVIDERS: Emergency Medicine
DX: M54.5 Low back pain (principal); E11.40 Type 2 diabetes mellitus with diabetic neuropathy, unspecified; E03.9 Hypothyroidism, unspecified; K21.9 Gastro-esophageal reflux disease without esophagitis; Z79.84 Long term (current) use of oral hypoglycemic drugs

== ENCOUNTER 2021-05-10 14:47 | Emergency (ER) | payer MEDICARE, MEDICAID ==
[~2021-05-10] VITALS: Ht 144.8 cm; Wt 69.5 kg
[~2021-05-10 14:47] MED LIST changes: +MOTRIN400 MG/TAB PO; +ORPHENADRINE100 MG PO
[2021-05-10 16:32] LABS: HEMOGLOBIN 10.3 g/dl (12.0-16.0); IMMATURE GRANULOCYTES 0.1 % (0.0-5.0); MEAN CELL VOLUME 82.7 fL CALC (80.0-100.0); MEAN CORPUSCULAR HGB 25.1 pG CALC (26.0-32.0); MEAN CORPUSCULAR HGB CONC 30.3 g/dL CAL (32.0-36.0); NEUT# 4.76 thou/uL (2.00-7.15); RED BLOOD COUNT 4.11 mill/uL (4.20-5.60); RED CELL DISTRI WIDTH 22.6 % (11.5-15.5)
[2021-05-10 16:48] LABS: ALBUMIN 3.9 g/dL (3.2-5.0); ALKALINE PHOSPHATASE 77 u/l (38-126); BUN 18 mg/dL (8-23); BUN/CREATININE RATIO 21 (12-20 (CALC)); CHLORIDE 98 mmol/l (95-108); CREATININE 0.9 mg/dL (0.5-1.0); GFR > 60 ML/MIN (>=60 (CALC)); GFR FOR AFR.AMER. > 60 ML/MIN (>=60 (CALC)); SGOT/AST 34 u/l (9-36); SODIUM 136 mmol/l (137-146); TOTAL PROTEIN 7.1 g/dL (6.3-8.2)
[2021-05-10 17:01] LABS: ANION GAP 10 (6-22 (CALC)); BILIRUBIN, TOTAL 0.4 mg/dL (0.0-1.4); CARBON DIOXIDE 32 mmol/l (22-30); POTASSIUM 3.9 mmol/l (3.5-5.1)
[2021-05-10 18:30] VITALS: BP 102/60
== END 2021-05-10 18:45 | disposition home or self-care (01) ==
LOC: ED 14:47
DX: S16.1XXA Strain of muscle, fascia and tendon at neck level, initial encounter (principal); E11.40 Type 2 diabetes mellitus with diabetic neuropathy, unspecified; M19.90 Unspecified osteoarthritis, unspecified site; E03.9 Hypothyroidism, unspecified; K21.9 Gastro-esophageal reflux disease without esophagitis; X58.XXXA Exposure to other specified factors, initial encounter; Z79.84 Long term (current) use of oral hypoglycemic drugs

== ENCOUNTER 2021-09-29 12:29 | Emergency (ER) | payer MEDICARE, MEDICAID ==
[~2021-09-29] VITALS: Ht 144.8 cm; Wt 64.0 kg
[2021-09-29 12:44] VITALS: BP 122/84
[2021-09-29 13:01] VITALS: BP 108/55
[2021-09-29 13:08] VITALS: BP 108/55
[2021-09-29] MEDS ORDERED: CYCLOBENZAPRINE10 MG PO (14:30)
[2021-09-29] MEDS ORDERED: NAPROXEN500 MG PO (14:30)
== END 2021-09-29 14:46 | disposition home or self-care (01) ==
LOC: ED 12:29
DX: M16.0 Bilateral primary osteoarthritis of hip (principal); E11.40 Type 2 diabetes mellitus with diabetic neuropathy, unspecified; E03.9 Hypothyroidism, unspecified; K21.9 Gastro-esophageal reflux disease without esophagitis; Z79.84 Long term (current) use of oral hypoglycemic drugs

== ENCOUNTER 2021-12-15 15:43 | Emergency (ER) | payer MEDICARE, MEDICAID ==
[2021-12-15] VITALS (12 sets, daily range): BP systolic 94–108; BP diastolic 34–61
[~2021-12-15] VITALS: Ht 144.8 cm; Wt 62.0 kg
[~2021-12-15 15:43] MED LIST changes: +CYCLOBENZAPRINE10 MG PO; +NAPROXEN500 MG PO
[2021-12-15 16:13] LABS: HEMATOCRIT 38.2 % (37.0-47.0); HEMOGLOBIN 11.7 g/dl (12.0-16.0); IMMATURE GRANULOCYTES 0.1 % (0.0-5.0); MEAN CELL VOLUME 84.9 fL CALC (80.0-100.0); MEAN CORPUSCULAR HGB CONC 30.6 g/dL CAL (32.0-36.0); NEUT# 6.41 thou/uL (2.00-7.15); RED BLOOD COUNT 4.5 mill/uL (4.20-5.60); RED CELL DISTRI WIDTH 19.6 % (11.5-15.5)
[2021-12-15 16:25] LABS: ALBUMIN 4.1 g/dL (3.2-5.0); ALKALINE PHOSPHATASE 83 u/l (38-126); ANION GAP 14 (6-22 (CALC)); BUN 21 mg/dL (8-23); BUN/CREATININE RATIO 27 (12-20 (CALC)); CARBON DIOXIDE 28 mmol/l (22-30); CHLORIDE 101 mmol/l (95-108); CREATININE 0.8 mg/dL (0.5-1.0); GFR FOR AFR.AMER. > 60 ML/MIN (>=60 (CALC)); GFR OTHER RACES > 60 ML/MIN (>=60 (CALC)); LIPASE 162 u/l (23-300); POTASSIUM 4.6 mmol/l (3.5-5.1); SGOT/AST 35 u/l (9-36); SODIUM 139 mmol/l (137-146); TOTAL PROTEIN 7.4 g/dL (6.3-8.2)
[2021-12-15 16:27] LABS: BILIRUBIN, TOTAL 0.2 mg/dL (0.0-1.4)
== END 2021-12-15 19:21 | disposition home or self-care (01) ==
LOC: ED 15:43
DX: S00.93XA Contusion of unspecified part of head, initial encounter (principal); S20.211A Contusion of right front wall of thorax, initial encounter; S60.221A Contusion of right hand, initial encounter; W18.39XA Other fall on same level, initial encounter; Y93.H2 Activity, gardening and landscaping; Y92.007 Garden or yard of unspecified non-institutional (private) residence as the place of occurrence of the external cause; R42 Dizziness and giddiness; R51.9 Headache, unspecified

== ENCOUNTER 2022-01-14 14:35 | Emergency (ER) | payer MEDICARE, MEDICAID ==
[~2022-01-14] VITALS: Ht 144.8 cm; Wt 68.1 kg
[2022-01-14] MEDS ORDERED: EC-NAPROXEN500 MG PO (16:33)
[2022-01-14 17:06] VITALS: BP 108/58
== END 2022-01-14 17:06 | disposition home or self-care (01) ==
LOC: ED 14:35
DX: M25.531 Pain in right wrist (principal); E03.9 Hypothyroidism, unspecified; K21.9 Gastro-esophageal reflux disease without esophagitis; E11.40 Type 2 diabetes mellitus with diabetic neuropathy, unspecified; Z79.84 Long term (current) use of oral hypoglycemic drugs

== ENCOUNTER 2022-05-10 13:21 | Emergency (ER) | payer MEDICARE, MEDICAID ==
[~2022-05-10] VITALS: Ht 144.8 cm; Wt 68.0 kg
[~2022-05-10 13:21] MED LIST changes: +EC-NAPROXEN500 MG PO
[2022-05-10] MEDS ORDERED: PREDNISONE5 MG PO (14:21)
[2022-05-10] MEDS ORDERED: OZEMPIC2 MG/1.5 M SC (14:21)
[2022-05-10 15:26] VITALS: BP 122/54
[2022-05-10 15:31] VITALS: BP 100/67
[2022-05-10 15:36] LABS: URINE BILIRUBIN - DIPSTICK NEGATIVE (NEGATIVE); URINE BLOOD DIPSTICK NEGATIVE (NEGATIVE); URINE COLOR YELLOW; URINE GLUCOSE - DIPSTICK >=1000 mg/dL (NEGATIVE); URINE KETONE NEGATIVE (NEGATIVE); URINE LEUK ESTERASE NEGATIVE (NEGATIVE); URINE PROTEIN - DIPSTICK NEGATIVE (NEG-TRACE); URINE SPECIFIC GRAVITY 1.015; URINE UROBILINOGEN - DIPSTICK 0.2 E.U./dL (0.2)
[2022-05-10 15:39] LABS: URINE NITRITE - DIPSTICK NEGATIVE (Negative)
[2022-05-10] MEDS ORDERED: METHOCARBAMOL500 MG PO (17:01)
[2022-05-10 17:03] VITALS: BP 100/67
== END 2022-05-10 17:10 | disposition home or self-care (01) ==
LOC: ED 13:21
PROVIDERS: Nurse Practitioner
DX: S39.012A Strain of muscle, fascia and tendon of lower back, initial encounter (principal); M79.602 Pain in left arm; E11.9 Type 2 diabetes mellitus without complications; E03.9 Hypothyroidism, unspecified; K21.9 Gastro-esophageal reflux disease without esophagitis; E11.40 Type 2 diabetes mellitus with diabetic neuropathy, unspecified; W10.9XXA Fall (on) (from) unspecified stairs and steps, initial encounter; Y92.009 Unspecified place in unspecified non-institutional (private) residence as the place of occurrence of the external cause; Z79.84 Long term (current) use of oral hypoglycemic drugs

== ENCOUNTER 2022-11-05 12:02 | Emergency (ER) | payer MEDICARE, MEDICAID ==
[~2022-11-05] VITALS: Ht 144.8 cm; Wt 63.5 kg
[2022-11-05] VITALS (7 sets, daily range): BP systolic 78–122; BP diastolic 50–62
[~2022-11-05 12:02] MED LIST changes: +METHOCARBAMOL500 MG PO; +OZEMPIC2 MG/1.5 M SC; +PREDNISONE5 MG PO
[2022-11-05 13:10] LABS: BASO% 0.6 % (0-3); EOS% 2.2 % (0-8); HEMATOCRIT 34.8 % (37.0-47.0); HEMOGLOBIN 10.4 g/dl (12.0-16.0); IMMATURE GRANULOCYTES 0.1 % (0.0-5.0); MEAN CORPUSCULAR HGB 23.9 pG CALC (26.0-32.0); MEAN CORPUSCULAR HGB CONC 29.9 g/dL CAL (32.0-36.0); MONO% 7.9 % (2-13); NEUT# 4.78 thou/uL (2.00-7.15); NEUT% 61.2 % (42-76); RED BLOOD COUNT 4.35 mill/uL (4.20-5.60); RED CELL DISTRI WIDTH 20.2 % (11.5-15.5)
[2022-11-05 13:12] LABS: ALBUMIN 4.4 g/dL (3.2-5.0); ALKALINE PHOSPHATASE 62 u/l (38-126); ANION GAP 14 (6-22 (CALC)); BILIRUBIN, TOTAL 0.4 mg/dL (0.02-1.3); BUN 21 mg/dL (8-23); BUN/CREATININE RATIO 29 (12-20 (CALC)); CARBON DIOXIDE 27 mmol/l (22-30); CHLORIDE 97 mmol/l (95-108); CREATININE 0.7 mg/dL (0.5-1.0); GFR FOR AFR.AMER. > 60 ML/MIN (>=60 (CALC)); GFR OTHER RACES > 60 ML/MIN (>=60 (CALC)); POTASSIUM 4.4 mmol/l (3.5-5.1); SGOT/AST 34 u/l (9-36); SODIUM 134 mmol/l (137-146)
[2022-11-05 13:26] LABS: INTERNATIONAL NORMALIZED RATIO 1.1 RATIO (0.7-1.3); PROTHROMBIN TIME 11.3 SECONDS (9.0-12.5)
[2022-11-05] MEDS ORDERED: HYDROCO/APAP1 TA9 PO (13:54)
== END 2022-11-05 14:18 | disposition home or self-care (01) ==
LOC: ED 12:02
PROVIDERS: Nurse Practitioner
DX: S42.132A Displaced fracture of coracoid process, left shoulder, initial encounter for closed fracture (principal); E11.40 Type 2 diabetes mellitus with diabetic neuropathy, unspecified; E03.9 Hypothyroidism, unspecified; K21.9 Gastro-esophageal reflux disease without esophagitis; X58.XXXA Exposure to other specified factors, initial encounter; Z79.84 Long term (current) use of oral hypoglycemic drugs

== ENCOUNTER 2022-12-15 14:22 | Emergency (ER) | payer MEDICARE, MEDICAID ==
[~2022-12-15] VITALS: Ht 144.8 cm; Wt 67.0 kg
[~2022-12-15 14:22] MED LIST changes: +HYDROCO/APAP1 TA9 PO
[2022-12-15 15:01] VITALS: BP 110/60
[2022-12-15 15:15] VITALS: BP 103/63
[2022-12-15] MEDS ORDERED: HYDROCO/APAP1 TA9 PO (15:23)
[2022-12-15 15:30] VITALS: BP 119/58
== END 2022-12-15 15:40 | disposition home or self-care (01) ==
LOC: ED 14:22
DX: M25.512 Pain in left shoulder (principal); E03.9 Hypothyroidism, unspecified; K21.9 Gastro-esophageal reflux disease without esophagitis; E11.40 Type 2 diabetes mellitus with diabetic neuropathy, unspecified; Z79.84 Long term (current) use of oral hypoglycemic drugs

== ENCOUNTER 2024-07-13 10:08 | Emergency (ER) | payer MEDICARE, MEDICAID ==
[~2024-07-13] VITALS: Ht 144.8 cm; Wt 66.0 kg
[~2024-07-13 10:08] MED LIST changes: +AMOX/K CLAV875 M1 PO; +ASPIRIN 81 LOW81 MG PO; +BUPROPION HCL150 MG PO; +CORICIDIN HBP DAY & PO; +FARXIGA10 MG; +LORTAB 5/3255 MG PO; +MEDDOSEPAK PO; +MOTRIN800 MG PO; +OMEPRAZOLE DR40 MG; +PAXLOVID PO; +ZITHROMAX Z-PA250 MG PO; +ZITHROMAX250 MG PO; +ZYRTEC10 M5 PO
[2024-07-13 11:00] LABS: BASO% 0.5 % (0-3); EOS% 1.1 % (0-8); HEMATOCRIT 44.2 % (37.0-47.0); HEMOGLOBIN 14.7 g/dl (12.0-16.0); IMMATURE GRANULOCYTES 0.1 % (0.0-5.0); MEAN CORPUSCULAR HGB 33.4 pG CALC (26.0-32.0); MEAN CORPUSCULAR HGB CONC 33.3 g/dL CAL (32.0-36.0); MONO% 6.1 % (2-13); NEUT# 5.93 thou/uL (2.00-7.15); NEUT% 72.2 % (42-76); RED BLOOD COUNT 4.4 mill/uL (4.20-5.60); RED CELL DISTRI WIDTH 12.2 % (11.5-15.5)
[2024-07-13 11:03] LABS: MEAN CELL VOLUME 100.5 fL CALC (80.0-100.0)
[2024-07-13 11:24] LABS: ALBUMIN 4.6 g/dL (3.2-5.0); ALKALINE PHOSPHATASE 72 u/l (38-126); ANION GAP 14 (6-22 (CALC)); BUN 27 mg/dL (8-23); BUN/CREATININE RATIO 46 (12-20 (CALC)); CARBON DIOXIDE 24 mmol/l (22-30); CHLORIDE 102 mmol/l (95-108); CREATININE 0.6 mg/dL (0.5-1.0); ESTIMATED GFR 94 ML/MIN (>=90 (CALC)); POTASSIUM 4.9 mmol/l (3.5-5.1); SGOT/AST 34 u/l (9-36); SODIUM 136 mmol/l (137-146); TOTAL PROTEIN 7.8 g/dL (6.3-8.2)
[2024-07-13 11:31] LABS: BILIRUBIN, TOTAL 0.6 mg/dL (0.02-1.3)
[2024-07-13] MEDS ORDERED: VOLTAREN1%GEL TOP (13:18)
[2024-07-13 13:40] VITALS: BP 124/58
== END 2024-07-13 13:41 | disposition home or self-care (01) ==
LOC: ED 10:08
PROVIDERS: Family Medicine
DX: M54.6 Pain in thoracic spine (principal); E03.9 Hypothyroidism, unspecified; K21.9 Gastro-esophageal reflux disease without esophagitis; E11.40 Type 2 diabetes mellitus with diabetic neuropathy, unspecified; Z79.84 Long term (current) use of oral hypoglycemic drugs; Z20.822 Contact with and (suspected) exposure to COVID-19